=== PATIENT | female | born 1965 | race Caucasian/White ===

== ENCOUNTER 2021-10-13 19:49 | Inpatient (IN) | payer MEDICAID, SELFPAY ==
[2021-10-13 20:32] VITALS: BP 160/107; PULSE 63; RESP 18; TEMP 37.8; O2SAT 98; BMI 19.2
--- NOTE | 2021-10-13 21:05 | ED.GENADULT ---
HPI - General Adult General Chief complaint: Unspecified Complaint, Adult Stated complaint: Covid+, can't swallow, possible blood clot Time Seen by Provider: 10/13/21 20:44 Source: patient, RN notes reviewed and old records reviewed Mode of arrival: ambulatory Limitations: no limitations History of Present Illness HPI narrative: 55-year-old woman presenting to the emergency department with complaint of weakness. The stay believe that the primary complaint. Think she is afraid of having COVID as she has tested positive today. Sounds like she may have been sick as long as a week maybe 5 days, sometime last week started coughing. Said her boyfriend brought at home. For some reason she decided to test today a home test and was positive. Has not had any diarrhea. She has not had any alcohol ?at least not today?. She is also complaining that her butt hurts. Sounds like that is really more broadly than very specific spot. Does endorse myalgias. Backache. she has not seen any rashes. She is going to need to phone a friend to get more information. I offered to check she prefers not. She thinks she might be dehydrated. Has not been eating much. No diarrhea. Has not actually vomited but she said she tried of soda today and it just foamed out of her mouth. She thought that was rather gross. Related Data Home Medications Medication Instructions Recorded Confirmed Aleve 10/13/21 buspirone 15 mg tablet mg 10/13/21 fluoxetine 20 mg capsule mg 10/13/21 trazodone 50 mg tablet mg 10/13/21 Allergies Allergy/AdvReac Type Severity Reaction Status Date / Time No Known Drug Allergies Allergy Verified 10/13/21 20:37 Review of Systems Status of ROS: Reports: 6 or more systems reviewed and unremarkable except as noted in History and below [facility] Social History Highest level of school completed/degree received: Associate degree: occupational, technical, vocational program Smoking Status: Current every day smoker What tobacco products do you use: cigarettes Smoking packs per day: 6 Smoking cigarettes per day: 120.0 Years smoked: 50 Smoking pack-years: 300.00 Do you use any of these nicotine containing products: None Second hand tobacco smoke exposure: No How often do you have a drink containing alcohol: 4 or more times a week Alcohol type: beer How many standard drinks containing alcohol do you have on a typical day: 1 or 2 How often do you have six or more drinks on one occasion: Never AUDIT-C Alcohol total score: 4 Non-prescribed substance use: marijuana (any form) Caffeine: Yes (Mountain Dew Couple/Daily) service: No Exam Narrative: Exam Narrative: This pleasant. Tanned. Smaller stature. Seems a little confused to questioning. Breathing easily. Speaking fluidly. Moving all extremities without difficulty. No extremity edema. Well perfused. Cranial nerves 2-12 intact. Cardiovascular with regular rate and rhythm no murmur rub or G appreciated. Abdomen flat soft nontender Lungs appear to be clear. She is not demonstrating any tachypnea or labored breathing. Skin without rash but did not see the area in question above. Warm. Const: Vital Signs, click to edit/add: Vital Signs - 24 hr 10/13/21 20:32 10/13/21 22:23 10/13/21 22:30 Temperature 100.0 F H 100.0 F H Pulse Rate [Right Pulse Oximeter] 63 58 L Respiratory Rate 18 18 Blood Pressure [Le ft Upper Arm] 160/107 H 162/105 H Pulse Oximetry 98 98 Documenting provider has reviewed patient's vital signs: yes Course Course Hospital Course: Exam and interview as above Given a L of normal saline and acetaminophen. On reassessment did seem more alert and more cognitively clear. Vital Signs Vital signs: Initial Vital Signs Temperature 100.0 F H 10/13/21 20:32 Temperature Source Temporal Artery Scan 10/13/21 20:32 Pulse Rate 63 10/13/21 20:32 Respiratory Rate 18 10/13/21 20:32 Blood Pressure 160/107 H 10/13/21 20:32 Blood Pressure Mean 124 10/13/21 20:32 Blood Pressure Position Supine 10/13/21 20:32 Pulse Oximetry 98 10/13/21 20:32 Oxygen Delivery Method 10/13/21 20:32 Vital Signs Temperature 100.0 F H 10/13/21 20:32 Pulse Rate 63 10/13/21 20:32 Respiratory Rate 18 10/13/21 20:32 Blood Pressure 160/107 H 10/13/21 20:32 Pulse Oximetry 98 10/13/21 20:32 Temperature 98.3 F 10/14/21 03:00 Pulse Rate 62 10/14/21 03:00 Respiratory Rate 16 10/14/21 03:00 Blood Pressure 125/98 H 10/14/21 03:00 Pulse Oximetry 97 10/14/21 03:00 Medical Decision Making MDM Narrative Medical decision making narrative: Will need to verify COVID. She has been hyponatremic in the past. While checking creatinine anticipating potential antiviral, will also check chemistries She has water with her, she feels that will be enough. With persistent hyponatremia, appears has not improved since last visit here in March, also added on urine studies and serum osmolality. Seem to have somewhat altered mental status on initial evaluation. I have deferred head CT and chest x-ray. Discussed with hospitalist upon admission. Might be out of the window for Paxil of id but might still be a candidate for remdesivir. Will need to clarify this time line further. I discussed this case for admission with hospitalist but due to time in the evening [facility] Lab Data Lab results reviewed: Yes I reviewed the patient's lab results Labs: Lab Results 10/13/21 10/13/21 10/13/21 Range/Units 21:15 21:20 21:20 WBC 5.69 (4.50-11.00) K/uL RBC 4.27 (4.00-5.20) m/uL Hgb 13.1 (12.0-16.0) gm/dL Hct 37.0 (33.0-51.0) % MCV 87 (80-100) fL MCH 31 (26-34) pg MCHC 35 (32-36) gm/dL RDW Coeff of [place] 12.5 (11.5-15.5) % Plt Count 181 (140-440) K/uL Neut % (Auto) 54.2 (42.0-72.0) % Lymph % (Auto) 32.9 (20-44) % [place] % (Auto) 12.1 H (0.0-11.0) % Eos % (Auto) 0.4 (0.0-7.0) % Baso % (Auto) 0.2 (0.0-3.0) % Neut # (Auto) 3.09 (1.7-7.0) K/uL Lymph # (Auto) 1.87 (0.90-2.90) K/uL [place] # (Auto) 0.70 (0.00-0.90) K/UL Eos # (Auto) 0.02 (0.00-0.50) K/uL Baso # (Auto) 0.01 (0.00-0.30) K/uL Abs Immat Gran (auto) 0.01 (0.00-0.30) K/uL Sodium 123 L* (135-149) mmol/L Potassium 3.8 (3.6-5.1) mmol/L Chloride 92 L (96-114) mmol/L Carbon Dioxide 23 (20-32) mmol/L BUN 8 (7-30) mg/dL Creatinine 0.6 (0.5-1.5) mg/dL Estimated Creat Clear 77.78 Estimated GFR 105 ml/min Glucose 111 (60-115) mg/dL Calcium 8.9 (8.4-10.6) mg/dL Total Bilirubin 0.5 (0.1-1.5) mg/dL AST 33 (12-35) U/L ALT 21 (4-35) U/L Alkaline Phosphatase 77 (40-150) U/L Total Protein 6.6 (6.0-8.3) g/dL Albumin 4.3 (3.3-5.0) g/dL Urine Color (Yellow) Urine Appearance (Clear) Urine pH (5.0-8.5) Ur Specific [place] (1.000-1.030) Urine Protein (Negative) Urine Glucose (UA) (Negative) Urine Ketones (Negative) Urine Blood (Negative) Urine Nitrite (Negative) Urine Bilirubin (Negative) Urine Urobilinogen (0.2-1.0) Ur Leukocyte Esterase (Negative) Urine RBC (0-2) Urine WBC (0-5) Ur Squamous Epith Cells (None-Few) Amorphous Sediment (None) Urine Bacteria (None) Ethyl Alcohol (0.01-0.03) % SARS-CoV-2 (PCR) POSITIVE SARS-CoV-2 A (Negative) 10/13/21 10/13/21 Range/Units 22:40 22:56 WBC (4.50-11.00) K/uL RBC (4.00-5.20) m/uL Hgb (12.0-16.0) gm/dL Hct (33.0-51.0) % MCV (80-100) fL MCH (26-34) pg MCHC (32-36) gm/dL RDW Coeff of [place] (11.5-15.5) % Plt Count (140-440) K/uL Neut % (Auto) (42.0-72.0) % Lymph % (Auto) (20-44) % [place] % (Auto) (0.0-11.0) % Eos % (Auto) (0.0-7.0) % Baso % (Auto) (0.0-3.0) % Neut # (Auto) (1.7-7.0) K/uL Lymph # (Auto) (0.90-2.90) K/uL [place] # (Auto) (0.00-0.90) K/UL Eos # (Auto) (0.00-0.50) K/uL Baso # (Auto) (0.00-0.30) K/uL Abs Immat Gran (auto) (0.00-0.30) K/uL Sodium (135-149) mmol/L Potassium (3.6-5.1) mmol/L Chloride (96-114) mmol/L Carbon Dioxide (20-32) mmol/L BUN (7-30) mg/dL Creatinine (0.5-1.5) mg/dL Estimated Creat Clear Estimated GFR ml/min Glucose (60-115) mg/dL Calcium (8.4-10.6) mg/dL Total Bilirubin (0.1-1.5) mg/dL AST (12-35) U/L ALT (4-35) U/L Alkaline Phosphatase (40-150) U/L Total Protein (6.0-8.3) g/dL Albumin (3.3-5.0) g/dL Urine Color Yellow (Yellow) Urine Appearance Clear (Clear) Urine pH 7.0 (5.0-8.5) Ur Specific [place] 1.015 (1.000-1.030) Urine Protein Negative (Negative) Urine Glucose (UA) Negative (Negative) Urine Ketones 2+ A (Negative) Urine Blood Trace-intact A (Negative) Urine Nitrite Negative (Negative) Urine Bilirubin Negative (Negative) Urine Urobilinogen 0.2 (0.2-1.0) Ur Leukocyte Esterase Negative (Negative) Urine RBC 0-2 (0-2) Urine WBC 0-2 (0-5) Ur Squamous Epith Cells Few (None-Few) Amorphous Sediment Few A (None) Urine Bacteria None (None) Ethyl Alcohol < 0.01 L (0.01-0.03) % SARS-CoV-2 (PCR) (Negative) Discharge Plan Discharge Clinical Impression: SARS-CoV-2 positive, Hyponatremia Patient Disposition: Admitted As Inpatient Condition: Improved
[2021-10-13 21:33] LABS: Basophils Absolute Auto 0.01 K/uL (0.00-0.30); Basophils Percent Auto 0.2 % (0.0-3.0); Eosinophils Absolute Auto 0.02 K/uL (0.00-0.50); Eosinophils Percent Auto 0.4 % (0.0-7.0); Hemoglobin* 13.1 gm/dL (12.0-16.0); Immature Granulocytes Abs Auto 0.01 K/uL (0.00-0.30); Lymphocytes Absolute Auto 1.87 K/uL (0.90-2.90); Lymphocytes Percent Auto 32.9 % (20-44); Mean Corpuscular HGB Conc 35 gm/dL (32-36); Mean Corpuscular Hemoglobin 31 pg (26-34); Mean Corpuscular Volume 87 fL (80-100); Monocytes Percent Auto 12.1 % (0.0-11.0); Neutrophils Absolute Auto 3.09 K/uL (1.7-7.0); Neutrophils Percent Auto 54.2 % (42.0-72.0); Platelet Count* 181 K/uL (140-440); RDW Coefficient of Variation % 12.5 % (11.5-15.5); Red Blood Count 4.27 m/uL (4.00-5.20); White Blood Count* 5.69 K/uL (4.50-11.00)
[2021-10-13 21:48] LABS: Slide Review Reflex No
--- NOTE | 2021-10-13 21:49 | ED.NURSE ---
call from daughter anh Vieira to update per pt
[2021-10-13 21:54] LABS: Albumin* 4.3 g/dL (3.3-5.0)
[2021-10-13 21:55] LABS: Chloride* 92 mmol/L (96-114); Potassium* 3.8 mmol/L (3.6-5.1)
[2021-10-13 21:57] LABS: Aspartate Amino Transferase* 33 U/L (12-35); Bilirubin Total* 0.5 mg/dL (0.1-1.5); Carbon Dioxide* 23 mmol/L (20-32); Creatinine* 0.6 mg/dL (0.5-1.5); Est. Creatinine Clearance* 77.78; Estimated Glomerular Filt Rate 105 ml/min; Total Protein* 6.6 g/dL (6.0-8.3)
[2021-10-13 21:58] LABS: Alanine Aminotransferase* 21 U/L (4-35); Alkaline Phosphatase* 77 U/L (40-150); Blood Urea Nitrogen* 8 mg/dL (7-30); Calcium* 8.9 mg/dL (8.4-10.6); Glucose* 111 mg/dL (60-115)
[2021-10-13 22:23] VITALS: TEMP 37.8
[2021-10-13] MEDS: ACETAMINOPHEN 500 MG TABLET 1000 MG PO (22:23)
[2021-10-13 22:26] LABS: Sodium* 123 mmol/L (135-149)
--- NOTE | 2021-10-13 22:28 | PC.NURSE ---
Lab called with critical Na level, Dr. Heath notified.
[2021-10-13 22:30] VITALS: BP 162/105; PULSE 58; RESP 18; O2SAT 98
[2021-10-13 22:55] LABS: SARS PCR* POSITIVE SARS-CoV-2 (Negative)
[2021-10-13] MEDS: 0.9 % SODIUM CHLORIDE 1000 ml 1,000 ML IV (22:58)
[2021-10-13 23:02] VITALS: TEMP 36.5
[2021-10-13 23:08] LABS: Ethanol* < 0.01 % (0.01-0.03)
--- NOTE | 2021-10-13 23:12 | W.PC.EDHO ---
Primary Language: Preferred Language: Orientation Status: [X] Alert & Oriented [] Slight Confusion [] Known Dx Dementia Transfers By: [X] Assist of 1 - independent [] Assist of 2 [] Lift Active Medications Generic Name Dose Route Start Last Admin Trade Name Freq PRN Reason Stop Dose Admin Sodium Chloride 1,000 mls @ 1,000 mls/hr 10/13/21 22:36 10/13/21 22:58 0.9 % Sodium Chloride 1000 Ml IV 10/13/21 23:35 1,000 mls/hr .Q1H ONE Administration Discontinued Medications Generic Name Dose Route Start Last Admin Trade Name Freq PRN Reason Stop Dose Admin Acetaminophen 1,000 mg 10/13/21 22:10 10/13/21 22:23 Acetaminophen 500 Mg Tablet PO 10/13/21 22:11 1,000 mg ONCE ONE Administration Description of Symptoms ED Triage Present Problem pt tested positive for covid at home today and is Description afraid. was sick over the weekend. worried about dehydration. nauseated. did vomit this am. reports sob. sats 99% upon arrival to room on RA. boyfriend is sick too. reports burning sensation to lower back Female History Patient No Pain Pain Description [Generalized] Dull, Achy Pain Intensity [Generalized] 6 Pain Intensity 6 Pain Intensity 6 Pain Intensity 6 Pain Scale Used [Generalized] Numeric (1 - 10) Pain Scale Used Numeric (1 - 10) Pain Scale Used Numeric (1 - 10) Pain Scale Used Numeric (1 - 10) IV Insertion/Site Date of IV Line Insertion [ 10/13/21 Right Forearm] Oxygen Administration Pulse Oximetry 98 Pulse Oximetry 98 Oxygen Delivery Method Room Air Oxygen Delivery Method Room Air
[2021-10-13 23:57] LABS: Appearance Urine Clear (Clear); Bilirubin Urine Negative (Negative); Blood Urine Trace-intact (Negative); Color Urine Yellow (Yellow); Glucose Urine Negative (Negative); Ketones Urine 2+ (Negative); Leukocyte Esterase Urine Negative (Negative); Nitrite Urine Negative (Negative); Protein Urine Negative (Negative); Specific Gravity Urine 1.015 (1.000-1.030); Urobilinogen Urine 0.2 (0.2-1.0)
[2021-10-14] VITALS (15 sets, daily range): BP systolic 125–168; BP diastolic 82–109; PULSE 56–65; RESP 16–20; TEMP 36.8–37.1; O2SAT 96–99; BMI 18.7
[2021-10-14 00:22] LABS: Amorphous Sediment Urine Few; RBC Urine 0-2 (0-2); Squamous Epithelial Cell Urine Few (None-Few); WBC Urine 0-2 (0-5)
--- NOTE | 2021-10-14 01:09 | PM.IMCN1 ---
Date of Consult Primary Care Provider: Octavia Rangel MD Consult Narrative Narrative: Yann [facility]le Hospitalist ADMISSION SUPPORT NOTE eHospitalist was contacted by Dr. Heath with request of admission support. Chief complaint: Weakness HPI: The patient was a poor historian so history gathering was quite difficult. She reports having a hard time focusing but tells me that this is normal for her. Per the ED provider the patient presented with complaints of increasing weakness with cough and was found to be positive for COVID with hyponatremia. Review of system is difficult to obtain. Home Medications/Pertinent Medical History/Pertinent Social History: Reviewed see EMR for details Review of Systems Status of ROS: Reports: other Narrative: difficult to obtain given mental status [facility] Social History Highest level of school completed/degree received: Associate degree: occupational, technical, vocational program Smoking Status: Current every day smoker What tobacco products do you use: cigarettes Smoking packs per day: 6 Smoking cigarettes per day: 120.0 Years smoked: 50 Smoking pack-years: 300.00 Do you use any of these nicotine containing products: None Second hand tobacco smoke exposure: No How often do you have a drink containing alcohol: 4 or more times a week Alcohol type: beer How many standard drinks containing alcohol do you have on a typical day: 1 or 2 How often do you have six or more drinks on one occasion: Never AUDIT-C Alcohol total score: 4 Non-prescribed substance use: marijuana (any form) Caffeine: Yes (Mountain Dew Couple/Daily) service: No Meds Home Medications and Allergies Home Medications Medication Instructions Recorded Confirmed Type Aleve 10/13/21 History buspirone 15 mg tablet mg 10/13/21 History fluoxetine 20 mg capsule mg 10/13/21 History trazodone 50 mg tablet mg 10/13/21 History Allergies Allergy/AdvReac Type Severity Reaction Status Date / Time No Known Drug Allergies Allergy Verified 10/13/21 20:37 Exam Narrative: Exam Narrative: Exam (performed via interactive video with assistance of bedside nurse): General: Alert, cooperative, no acute distress HEENT: Oral mucosa pink and moist without erythema Lungs: Clear to auscultation bilaterally without crackle or wheeze CV: Regular rate and rhythm without loud murmur rub or gallop Ext: No pitting edema noted Skin: No rashes, bruises or lesions appreciated on gross visualization of exposed skin Neuro: Alert, oriented x 3. CN III -VII, XI, XII grossly intact, moves all extremities without any significant focal deficit appreciated Const: Vital Signs, click to edit/add: Vital Signs - 24 hr 10/13/21 20:32 10/13/21 22:23 10/13/21 22:30 Temperature 100.0 F H 100.0 F H Pulse Rate [Left A pical] Pulse Rate [Right Pulse Oximeter] 63 58 L Respiratory Rate 18 18 Blood Pressure [Le ft Upper Arm] 160/107 H 162/105 H Blood Pressure [Ri ght Arm] Pulse Oximetry 98 98 10/13/21 23:02 10/14/21 00:41 Temperature 97.7 F 98.3 F Pulse Rate [Left A pical] 64 Pulse Rate [Right Pulse Oximeter] Respiratory Rate 16 Blood Pressure [Le ft Upper Arm] Blood Pressure [Ri ght Arm] 157/94 H Pulse Oximetry 98 Labs Labs: Short CBC 10/13/21 Range/Units 21:20 WBC 5.69 (4.50-11.00) K/uL Hgb 13.1 (12.0-16.0) gm/dL Hct 37.0 (33.0-51.0) % Plt Count 181 (140-440) K/uL BMP 10/13/21 21:20 Sodium 123 L* Potassium 3.8 Chloride 92 L Carbon Dioxide 23 BUN 8 Creatinine 0.6 Glucose 111 Calcium 8.9 Liver Function 10/13/21 Range/Units 21:20 Total Bilirubin 0.5 (0.1-1.5) mg/dL AST 33 (12-35) U/L ALT 21 (4-35) U/L Alkaline Phosphatase 77 (40-150) U/L Albumin 4.3 (3.3-5.0) g/dL Urine 10/13/21 Range/Units 22:56 Urine Color Yellow (Yellow) Urine Appearance Clear (Clear) Urine pH 7.0 (5.0-8.5) Ur Specific [place] 1.015 (1.000-1.030) Urine Protein Negative (Negative) Urine Glucose (UA) Negative (Negative) Assessment and Plan Assessment and plan (1) SARS-CoV-2 positive: Status: Acute (2) Hyponatremia: Status: Acute Plan Recent lab: Reviewed see EMR for details Assessment and Plan: 1. Hyponatremia-in reviewing the patient's chart it appears that in March she had an episode of hyponatremia with sodium about 124. I do not see any follow-up sodium after that time. However prior to that she had sodium levels between 133-139. Serum osmolarity is pending at this time as well as additional urine studies. After 1 L of fluid her sodium has improved to 126. Will continue gentle hydration and check sodium levels every 4 hours. She seems a little off during my evaluation in terms of her ability to concentrate but she reports that this is not a new issue. I unfortunately do not know her baseline mental function so I am uncertain whether this is a new issue 2. COVID infection-supportive care 3. Depression/anxiety-stable continue antidepressants once medication reconciled 4. 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 DVT prophylaxis-Lovenox 6. CODE STATUS-full code per documentation Chart review was performed as well as evaluation of the patient via video. Thank you for involving ehospitalist. Please contact [phone] if further assistance is needed.
[2021-10-14] MEDS: NICOTINE 21 MG PATCH 1 PATCH TRANSDERMA (02:06)
[2021-10-14 02:25] LABS: Chloride* 96 mmol/L (96-114); Potassium* 3.8 mmol/L (3.6-5.1); Sodium* 126 mmol/L (135-149)
[2021-10-14 02:28] LABS: Blood Urea Nitrogen* 6 mg/dL (7-30); Calcium* 8.3 mg/dL (8.4-10.6); Carbon Dioxide* 21 mmol/L (20-32); Creatinine* 0.5 mg/dL (0.5-1.5); Estimated Glomerular Filt Rate 109 ml/min; Glucose* 114 mg/dL (60-115)
[2021-10-14] MEDS: 0.9 % SODIUM CHLORIDE 1000 ml 1,000 ML 100 ML IV ×2 (03:45→13:29)
--- NOTE | 2021-10-14 06:37 | PC.NURSE ---
Shift 7p-7a: Pt. AO, following commands. VSS on RA, seen by ehospitalist Dr. Diaz upon admission. Pt. seemingly loses focus during conversation, but states, this is normal for me. MD aware of current pt. status. Pt. ambulating to bathroom independently, voiding w/o difficulty. Pt. started on NS at 100mL/hr for Na+ level 126. BMP re-drawn this AM, pending results. No other signs/symptoms of ETOH withdrawal at this time, as according to patient, her last drink was yesterday. Nicotine patch applied to RT shoulder
[2021-10-14 06:52] LABS: Chloride* 97 mmol/L (96-114); Potassium* 4.2 mmol/L (3.6-5.1); Sodium* 127 mmol/L (135-149)
[2021-10-14 06:55] LABS: Blood Urea Nitrogen* 6 mg/dL (7-30); Calcium* 8.4 mg/dL (8.4-10.6); Carbon Dioxide* 22 mmol/L (20-32); Creatinine* 0.5 mg/dL (0.5-1.5); Estimated Glomerular Filt Rate 109 ml/min; Glucose* 117 mg/dL (60-115)
[2021-10-14] MEDS: ONDANSETRON 2 MG/ML inj 4 MG IVP (08:28)
[2021-10-14] MEDS: ACETAMINOPHEN 325 MG TABLET 650 MG PO ×2 (08:28→19:39)
--- NOTE | 2021-10-14 09:27 | PM.IMHP1 ---
Hospitalist- H&P: HPI History of Present Illness Time Seen by Provider: 09:28 Date Seen: 10/14/21 Chief complaint: Covid+, can't swallow, possible blood clot Narrative: Licha Soto is a 55 year old female who presents with nausea and vomiting after testing positive earlier in the day for COVID-19. She was noted to have low serum sodium of 123. She has no respiratory symptoms and is on room air. Patient has poor oral tolerance of food was significant vomiting. Patient is not vaccinated for COVID-19. She has been sick with similar symptoms as noted for the past 5 days. Review of Systems Status of ROS: Reports: 10 or more systems reviewed and unremarkable except as noted in History and below PFSH PFS Social History Highest level of school completed/degree received: Associate degree: occupational, technical, vocational program Smoking Status: Current every day smoker What tobacco products do you use: cigarettes Smoking packs per day: 6 Smoking cigarettes per day: 120.0 Years smoked: 50 Smoking pack-years: 300.00 Do you use any of these nicotine containing products: None Second hand tobacco smoke exposure: No How often do you have a drink containing alcohol: 4 or more times a week Alcohol type: beer How many standard drinks containing alcohol do you have on a typical day: 1 or 2 How often do you have six or more drinks on one occasion: Never AUDIT-C Alcohol total score: 4 Non-prescribed substance use: marijuana (any form) Caffeine: Yes (Mountain Dew Couple/Daily) service: No Meds Home Medications and Allergies Home Medications Medication Instructions Recorded Confirmed Type Aleve 10/13/21 History buspirone 15 mg tablet mg 10/13/21 History fluoxetine 20 mg capsule mg 10/13/21 History trazodone 50 mg tablet mg 10/13/21 History Allergies Allergy/AdvReac Type Severity Reaction Status Date / Time No Known Drug Allergies Allergy Verified 10/13/21 20:37 Exam Narrative: Exam Narrative: EXAM GENERAL: Patient appears uncomfortable and nauseous. EYES: No scleral icterus. LYMPH: No supraclavicular or cervical lymphadenopathy. SKIN: Visible skin seen during exam normal or with benign process only. EXT: No dependent lower extremity pedal edema. HEART: Regular rate and rhythm with no murmurs, rubs, or gallops. LUNGS: Clear to auscultation bilaterally with no crackles or wheezes. ABD: Soft, non tender, non distended. PSYCH: Good eye contact, speech is not pressured. Const: Vital Signs, click to edit/add: Vital Signs - 24 hr 10/13/21 20:32 10/13/21 22:23 10/13/21 22:30 Temperature 100.0 F H 100.0 F H Pulse Rate [Left A pical] Pulse Rate [Right Pulse Oximeter] 63 58 L Respiratory Rate 18 18 Blood Pressure [Le ft Upper Arm] 160/107 H 162/105 H Blood Pressure [Ri ght Arm] Pulse Oximetry 98 98 10/13/21 23:02 10/14/21 00:15 10/14/21 00:41 Temperature 97.7 F 98.3 F 98.3 F Pulse Rate [Left A pical] 64 Pulse Rate [Right Pulse Oximeter] Respiratory Rate 16 Blood Pressure [Le ft Upper Arm] Blood Pressure [Ri ght Arm] 157/94 H Pulse Oximetry 98 10/14/21 03:00 10/14/21 08:28 Temperature 98.3 F 98.4 F Pulse Rate [Left A pical] 62 Pulse Rate [Right Pulse Oximeter] Respiratory Rate 16 Blood Pressure [Le ft Upper Arm] Blood Pressure [Ri ght Arm] 125/98 H Pulse Oximetry 97 Hospitalist - H&P: Result Labs Labs: Short CBC 10/13/21 Range/Units 21:20 WBC 5.69 (4.50-11.00) K/uL Hgb 13.1 (12.0-16.0) gm/dL Hct 37.0 (33.0-51.0) % Plt Count 181 (140-440) K/uL BMP 10/13/21 10/14/21 10/14/21 21:20 02:05 06:25 Sodium 123 L* 126 L 127 L Potassium 3.8 3.8 4.2 Chloride 92 L 96 97 Carbon Dioxide 23 22 BUN 8 6 L 6 L Creatinine 0.6 0.5 0.5 Glucose 111 114 117 H Calcium 8.9 8.3 L 8.4 Liver Function 10/13/21 Range/Units 21:20 Total Bilirubin 0.5 (0.1-1.5) mg/dL AST 33 (12-35) U/L ALT 21 (4-35) U/L Alkaline Phosphatase 77 (40-150) U/L Albumin 4.3 (3.3-5.0) g/dL Urine 10/13/21 Range/Units 22:56 Urine Color Yellow (Yellow) Urine Appearance Clear (Clear) Urine pH 7.0 (5.0-8.5) Ur Specific [place] 1.015 (1.000-1.030) Urine Protein Negative (Negative) Urine Glucose (UA) Negative (Negative) Assessment and Plan Assessment and plan (1) SARS-CoV-2 positive: Problem comment: Patient not hypoxic but will be placed in isolation. Status: Acute Assessment and Plan: Continue symptomatic care. (2) Hyponatremia: Status: Acute Assessment and Plan: Will treat with IV hydration, oral fluid restriction and nausea control. Repeat electrolytes in the morning.
[2021-10-14] MEDS: LORazepam 1 MG TABLET PO ×2 (10:55→19:41)
[2021-10-14] MEDS: BUSPIRONE 10 MG TABLET 15 MG PO ×3 (10:56→20:22)
[2021-10-14] MEDS: FLUOXETINE HCL 20 MG CAPSULE 60 MG PO (10:56)
--- NOTE | 2021-10-14 14:16 | PC.NURSE ---
Pt is on 1000cc fluid rest. and had 540 intake. She had increased tremors, CLANCY, and nausea, she denies drink more then 1 drink per day or hx of etoh withdraw. Called Dr. Nixon for one time dose Ativan and started CWIA and Ativan is now ordered. She has been scoring 4 or higher with CWIA. Pt is unsteady when she is having tremors and after Ativan able to amb. with SBA. Remains on RA at 93-96%. Updated Dtr per pt req. and Pt approved discussing ETOH use, dtr is not aware of her amount of etoh per day.
[2021-10-14] MEDS: ENOXAPARIN 40 MG/0.4 ML INJ SUBCUT (20:22)
[2021-10-14] MEDS: TRAZODONE HCL 50 MG TABLET PO (20:23)
--- NOTE | 2021-10-14 21:22 | PC.NURSE ---
Shift Note [id number]: Pt has been pleasant and cooperative with cares. She does display reduced interactions and c/o medium headache and light sensitivity. CIWA= 5 and 9, Ativan 1mg given at 1999. Pt verbalized ice pack behind her neck and aromatherapy as well as PRN Tylenol have helped improve her headache. BP's intermittently hypertensive, 160/100 at 1900 prior to Ativan administration. Denies SOB or respiratory symptoms. 1000cc FR remains in place and NS infusing at 100/hr. Mediocre appetite, pt able to eat 1/2 a ham sandwich for supper. Moves well with SBA. small BM x1 this afternoon.
[2021-10-15] VITALS (8 sets, daily range): BP systolic 132–160; BP diastolic 76–102; PULSE 60–75; RESP 16–24; TEMP 36.7–36.9; O2SAT 96–100
[2021-10-15] MEDS: NICOTINE 21 MG PATCH 1 PATCH TRANSDERMA (01:57)
[2021-10-15 07:19] LABS: Basophils Absolute Auto 0.03 K/uL (0.00-0.30); Basophils Percent Auto 0.6 % (0.0-3.0); Hemoglobin* 13.7 gm/dL (12.0-16.0); Lymphocytes Percent Auto 46.5 % (20-44); Mean Corpuscular HGB Conc 36 gm/dL (32-36); Mean Corpuscular Hemoglobin 31 pg (26-34); Mean Corpuscular Volume 86 fL (80-100); Monocytes Percent Auto 14.4 % (0.0-11.0); Neutrophils Percent Auto 36.5 % (42.0-72.0); Platelet Count* 215 K/uL (140-440); RDW Coefficient of Variation % 12.2 % (11.5-15.5); White Blood Count* 5.01 K/uL (4.50-11.00)
[2021-10-15 07:22] LABS: Slide Review Reflex No
[2021-10-15 07:25] LABS: Chloride* 94 mmol/L (96-114); Potassium* 4.2 mmol/L (3.6-5.1); Sodium* 126 mmol/L (135-149)
[2021-10-15 07:28] LABS: Creatinine* 0.7 mg/dL (0.5-1.5); Est. Creatinine Clearance* 66.86; Estimated Glomerular Filt Rate 101 ml/min
[2021-10-15 07:29] LABS: Blood Urea Nitrogen* 7 mg/dL (7-30); Calcium* 8.5 mg/dL (8.4-10.6); Carbon Dioxide* 26 mmol/L (20-32); Glucose* 102 mg/dL (60-115)
--- NOTE | 2021-10-15 07:53 | PC.NURSE ---
END OF SHIFT NOTE: PT PLEASANT AND COOPERATIVE. AMBULATES WITH SBA. FURNITURE WALKER. LSCTA. PT ON RA. VSS AND WNL; AFEBRILE. FLUID RESTRICTION IN PLACE. NICOTINE PATCH PLACED ON LEFT SHOULDER.
[2021-10-15] MEDS: BUSPIRONE 10 MG TABLET 15 MG PO ×3 (09:14→20:51)
[2021-10-15] MEDS: FLUOXETINE HCL 20 MG CAPSULE 60 MG PO (09:14)
[2021-10-15] MEDS: ACETAMINOPHEN 325 MG TABLET 650 MG PO ×2 (09:27→14:24)
--- NOTE | 2021-10-15 11:14 | PM.IMPN1 ---
Progress Note: A&P Assessment and plan (1) SARS-CoV-2 positive: Problem details: Patient not hypoxic but will be placed in isolation. Status: Acute Assessment and Plan: Continue hydration and fluid restriction to treat her mild hyponatremia. We will try to advance her diet activity today. (2) Hyponatremia: Status: Acute Assessment and Plan: As above. Subjective Time Seen by Provider: 11:16 Date Seen: 10/15/21 Interval history: Patient still has poor oral intake. Her sodium which did increase to 127 is gone back down to 126. She has a headache and malaise body aches but no hypoxia and no difficulty breathing. Patient otherwise is making slow but steady improvement. Exam Narrative: Exam Narrative: EXAM GENERAL: Patient appears comfortable and well. EYES: No scleral icterus. LYMPH: No supraclavicular or cervical lymphadenopathy. SKIN: Visible skin seen during exam normal or with benign process only. EXT: No dependent lower extremity pedal edema. HEART: Regular rate and rhythm with no murmurs, rubs, or gallops. LUNGS: Clear to auscultation bilaterally with no crackles or wheezes. ABD: Soft, non tender, non distended. PSYCH: Good eye contact, speech is not pressured. Const: Vital Signs, click to edit/add: Vital Signs - 24 hr 10/14/21 11:38 10/14/21 12:30 10/14/21 15:00 Temperature 98.8 F 98.4 F Pulse Rate [Left A pical] 56 L 60 60 Pulse Rate [Pulse Oximeter] Respiratory Rate 18 18 18 Blood Pressure [Ri ght Arm] 135/82 145/94 H Pulse Oximetry 97 96 97 10/14/21 16:59 10/14/21 19:39 10/14/21 19:41 Temperature 98.4 F 98.7 F 98.7 F Pulse Rate [Left A pical] 60 61 Pulse Rate [Pulse Oximeter] Respiratory Rate 18 20 Blood Pressure [Ri ght Arm] 145/94 H 160/100 H Pulse Oximetry 97 97 10/14/21 19:45 10/14/21 20:47 10/15/21 00:50 Temperature 98.7 F 98.7 F 98.3 F Pulse Rate [Left A pical] 61 64 Pulse Rate [Pulse Oximeter] 64 Respiratory Rate 20 16 Blood Pressure [Ri ght Arm] 160/100 H 138/76 Pulse Oximetry 99 97 10/15/21 05:00 Temperature 98.2 F Pulse Rate [Left A pical] Pulse Rate [Pulse Oximeter] 69 Respiratory Rate 16 Blood Pressure [Ri ght Arm] 154/100 H Pulse Oximetry 100 Labs Labs: Laboratory Results - last 24 hr 10/15/21 10/15/21 06:40 06:40 WBC 5.01 RBC 4.40 Hgb 13.7 Hct 38.0 MCV 86 MCH 31 MCHC 36 RDW Coeff of Snehal 12.2 Plt Count 215 Neut % (Auto) 36.5 L Lymph % (Auto) 46.5 H [facility] % (Auto) 14.4 H Eos % (Auto) 2.0 Baso % (Auto) 0.6 Neut # (Auto) 1.80 Lymph # (Auto) 2.30 [facility] # (Auto) 0.70 Eos # (Auto) 0.10 Baso # (Auto) 0.03 Abs Immat Gran (auto) 0.00 Sodium 126 L Potassium 4.2 Chloride 94 L Carbon Dioxide 26 BUN 7 Creatinine 0.7 Estimated Creat Clear 66.86 Estimated GFR 101 Glucose 102 Calcium 8.5
[2021-10-15] MEDS: 0.9 % SODIUM CHLORIDE 1000 ml 1,000 ML 100 ML IV ×2 (12:03→21:00)
[2021-10-15] MEDS: LORazepam 1 MG TABLET PO (12:06)
[2021-10-15 15:30] LABS: Urine Osmolality 251 mOsm/kg
--- NOTE | 2021-10-15 18:41 | PC.NURSE ---
PATIENT'S BP ELEVATED DURING DAY SHIFT. PATIENT REPORTED HEADACHE THIS AM. RECEIVED TYLENOL WITH NO IMPROVEMENT. PATIENT STATED HER HEAD FELT LIKE IT WAS BEING CRACKED OPEN. PATIENT MILDLY ANXIOUS AT THAT TIME AND SENSITIVITY TO LIGHT. CIWA AT 1115 WAS 9 AND ATIVAN 1MG PO ADMINISTERED. PATIENT WAS ABLE TO TAKE A NAP AND STATED THIS AFTERNOON THAT HER HEADACHE HAD IMPROVED AND WENT FROM 10/10 TO 2/10. PATIENT'S BP ALSO DOWN TO 137/82. UP WITH SBA. TOLERATING REGULAR DIET WITH NO C/O N/V. DAUGHTER HERE TO VISIT AND EDUCATION PROVIDED TO DAUGHTER ON HYPONATREMIA AND COVID19. PATIENT'S O2 SATS 96-98%RA. PRODUCTIVE COUGH.
[2021-10-15] MEDS: TRAZODONE HCL 50 MG TABLET PO (20:52)
[2021-10-15] MEDS: ENOXAPARIN 40 MG/0.4 ML INJ SUBCUT (20:52)
[2021-10-16] VITALS: BP 167/93; PULSE 61; RESP 24; TEMP 36.9; O2SAT 99
[2021-10-16] MEDS: NICOTINE 21 MG PATCH 1 PATCH TRANSDERMA (01:47)
[2021-10-16 04:00] VITALS: BP 145/72; PULSE 55; RESP 24; TEMP 36.9; O2SAT 97
[2021-10-16] MEDS: 0.9 % SODIUM CHLORIDE 1000 ml 1,000 ML 100 ML IV (06:34)
--- NOTE | 2021-10-16 07:14 | PC.NURSE ---
-07: Pt pleasant and cooperative. No c/o pain. No c/o nausea. Pt compliant with fluid restriction. Calls appropriately. SBA, pt unsteady on feet. Occasional cough, encouraged to use aerobika. O2 sats 96-100% on RA. BP 140s/70s. No need for Ativan per CIWA protocal. ?
[2021-10-16 07:42] LABS: Chloride* 100 mmol/L (96-114); Potassium* 3.8 mmol/L (3.6-5.1); Sodium* 130 mmol/L (135-149)
[2021-10-16 07:45] LABS: Carbon Dioxide* 25 mmol/L (20-32); Creatinine* 0.6 mg/dL (0.5-1.5); Est. Creatinine Clearance* 75.98; Estimated Glomerular Filt Rate 105 ml/min
[2021-10-16 07:46] LABS: Blood Urea Nitrogen* 7 mg/dL (7-30); Calcium* 8.2 mg/dL (8.4-10.6); Glucose* 99 mg/dL (60-115)
[2021-10-16 08:41] VITALS: BP 154/100; PULSE 67; RESP 16; TEMP 36.8; O2SAT 98
[2021-10-16] MEDS: FLUOXETINE HCL 20 MG CAPSULE 60 MG PO (08:42)
[2021-10-16] MEDS: BUSPIRONE 10 MG TABLET 15 MG PO (08:43)
--- NOTE | 2021-10-16 09:37 | PM.DS1 ---
DS: Providers Provider Time Seen by Provider: 09:37 Date Seen: 10/16/21 Date of admission: 10/13/21 23:02 Primary care physician: Octavia Rangel MD Admitting Clinician: Rodrick Heath MD Attending Physician on discharge: Rodrick Heath MD Date of Discharge: 10/16/21 DS: Diagnosis Discharge Diagnosis (1) SARS-CoV-2 positive: Status: Acute Problem details: Patient not hypoxic but will be placed in isolation. (2) Hyponatremia: Status: Acute DS: Summary Hospital Course Hospital Course: Patient is E 55-year-old woman who presented with COVID-19 and nausea and vomiting. She had hyponatremia which responded to fluid restriction with normalization of her serum sodium. She is now feeling well she has no respiratory symptoms no fevers no chills no night sweats. She has general body aches and malaise. This time she will be discharged home to continue her outpatient medications following isolation protocol in following up with her primary physician needed Time Spent with Patient Time attestation: Total time spent providing and/or coordinating discharge services: Time spent: Greater than 30 minutes Exam Narrative: Exam Narrative: EXAM GENERAL: Patient appears comfortable and well. EYES: No scleral icterus. LYMPH: No supraclavicular or cervical lymphadenopathy. SKIN: Visible skin seen during exam normal or with benign process only. EXT: No dependent lower extremity pedal edema. HEART: Regular rate and rhythm with no murmurs, rubs, or gallops. LUNGS: Clear to auscultation bilaterally with no crackles or wheezes. ABD: Soft, non tender, non distended. PSYCH: Good eye contact, speech is not pressured. Const: Vital Signs, click to edit/add: Vital Signs - 24 hr 10/15/21 11:24 10/15/21 11:26 10/15/21 16:00 Temperature 98.3 F 98.3 F 98.2 F Pulse Rate [Left A pical] 72 Pulse Rate [Pulse Oximeter] 60 60 75 Respiratory Rate 16 16 18 Blood Pressure [Ri ght Arm] 160/102 H 160/102 H 137/82 Pulse Oximetry 97 97 96 10/15/21 20:00 10/15/21 23:00 10/16/21 00:00 Temperature 98.4 F 98.4 F Pulse Rate [Left A pical] 72 Pulse Rate [Pulse Oximeter] 70 70 61 Respiratory Rate 24 24 24 Blood Pressure [Ri ght Arm] 132/87 167/93 H Pulse Oximetry 99 99 10/16/21 04:00 10/16/21 08:41 Temperature 98.4 F 98.2 F Pulse Rate [Left A pical] Pulse Rate [Pulse Oximeter] 55 L 67 Respiratory Rate 24 16 Blood Pressure [Ri ght Arm] 145/72 H 154/100 H Pulse Oximetry 97 98 DS: Data Data Completed and Pending Labs on day of discharge: Labs from last 24 hours 10/16/21 10/13/21 10/13/21 07:01 22:56 22:56 Sodium 130 L Potassium 3.8 Chloride 100 Carbon Dioxide 25 BUN 7 Creatinine 0.6 Estimated Creat Clear 75.98 Estimated GFR 105 Glucose 99 Serum Osmolality 252 L Calcium 8.2 L Ur Random Osmolality 251 Discharge Plan Discharge Disposition: Home, Self-Care Date of Admission: 10/13/21 23:02 Attending Provider on Discharge: Edy Nixon Primary Care Provider: Octavia Rangel Condition: Improved Anticipated Discharge Date/Time: 10/16/21 09:33 Discharge Medications: Continued trazodone 50 mg tablet 50 mg PO HS 0RF fluoxetine 20 mg capsule 60 mg PO DAILY 0RF buspirone 15 mg tablet 15 mg PO DAILY 0RF Discharge Orders: Discharge Order (Routine); Ordered 10/16/21 Ordered By: Edy Nixon Patient Education: COVID-19 (Coronavirus Disease 2019) (DC) Activity Level: No Restrictions Activity Detail: Isolation per hospital protocol Discharge Diet: Regular Follow Up Appointments: Octavia Rangel MD [Primary Care Provider] - (prn) [facility] Inst[facility]
--- NOTE | 2021-10-16 11:50 | PC.NURSE ---
Trazodone 50mg po @ [facility], #30, 0 refills called in to [facility] per verbal order from Dr. Nixon.
== END 2021-10-16 11:50 | disposition home or self-care (01) | DRG 640 ==
LOC: ED 23:24 → MEDSURG 10-14 00:34
PROVIDERS: Internal Medicine; Admitting Provider Family Medicine; Emergency Provider Family Medicine; PCP Family Medicine; Visit Provider Family Medicine
DX: E87.1 Hypo-osmolality and hyponatremia (principal); U07.1 COVID-19; E86.0 Dehydration; F17.210 Nicotine dependence, cigarettes, uncomplicated; F41.8 Other specified anxiety disorders
CPT/HCPCS: 36415; 80048; 80053; 81003; 81015; 82077; 83930; 83935; 85025; 87635; 94761; 99283; 99284; A9270; J1650; J2405; J7030; S4990